=== PATIENT | female | born 2000 | race Caucasian/White ===

== ENCOUNTER 2018-09-03 11:10 | Emergency (ER) | payer OTHER ==
[2018-09-03] MEDS: IBUPROFEN 600 MG TAB PO (12:11)
[2018-09-03] MEDS: DEXAMETHASONE 10 MG/ML 1 ML INJ IM (12:11)
[2018-09-03] MEDS: IBUPROFEN 200 MG TAB PO (12:12)
== END 2018-09-03 13:10 | disposition home or self-care (01) ==
LOC: FTE 13:10
DX: J02.9 Acute pharyngitis, unspecified (principal)
CPT/HCPCS: 96372; 99284-25

== ENCOUNTER 2018-09-06 10:41 | Emergency (ER) | payer OTHER ==
[2018-09-06 11:29] LABS: ADD MAN DIFF? NO
[2018-09-06 11:32] LABS: BASOPHILS % 0.4 % (0.0-2.0); EOSINOPHILS % 0.1 % (0.0-7.0); HEMATOCRIT 42.7 % (37.0-47.0); HEMOGLOBIN 14.1 g/dl (12.0-16.0); LYMPHOCYTES # 1.5 10^3/ul (0.8-2.9); LYMPHOCYTES % 21.9 % (18.0-55.0); MEAN CORPUSCULAR VOLUME 90.9 fl (72.0-104.0); MEAN PLATELET VOLUME 9.7 fl (7.4-10.4); MONOCYTE # 0.7 10^3/ul (0.3-0.9); MONOCYTES % 9.8 % (0.0-13.0); NEUTROPHIL # 4.8 10^3/ul (1.6-7.5); NEUTROPHILS % 67.7 % (30.0-74.0); PLATELET COUNT 178 10^3/UL (140-415); RED CELL DISTRIBUTION WIDTH 12.7 % (11.5-14.5)
[2018-09-06] MEDS: IBUPROFEN 600 MG TAB PO (11:40)
[2018-09-06 12:00] LABS: ALANINE AMINOTRANSFERASE 34 IU/L (13-69); ALBUMIN 4.1 g/dl (3.3-4.9); ALBUMIN/GLOBULIN RATIO 1.05; ALKALINE PHOSPHATASE 61 IU/L (42-121); ANION GAP 11 (5-13); ASPARTATE AMINO TRANSFERASE 29 IU/L (15-46); BILIRUBIN,INDIRECT 0.7 mg/dl (0-1.1); BILIRUBIN,TOTAL 0.7 mg/dl (0.2-1.3); BLOOD UREA NITROGEN 7 mg/dl (7-20); CALCIUM 8.9 mg/dl (8.4-10.2); CARBON DIOXIDE 26 mmol/L (21-31); CHLORIDE 105 mmol/L (97-110); CREATININE 0.52 mg/dl (0.44-1.00); Estimated GFR > 60 mL/min (>60); GLUCOSE 92 mg/dl (70-220); POTASSIUM 3.3 mmol/L (3.5-5.1); SODIUM 142 mmol/L (135-144)
[2018-09-06 12:41] LABS: MONOTEST Negative (NEG)
== END 2018-09-06 13:14 | disposition home or self-care (01) ==
LOC: FTE 10:41
DX: J02.8 Acute pharyngitis due to other specified organisms (principal); K12.1 Other forms of stomatitis; B97.89 Other viral agents as the cause of diseases classified elsewhere
CPT/HCPCS: 36415; 80053; 85025; 86308; 87070; 87880; 99283